=== PATIENT | male | born 1955 | race Caucasian/White ===

== ENCOUNTER 2016-10-02 08:17 | Day surgery (SDC) | payer OTHER, MEDICARE ==
[~2016-10-02] VITALS: Ht 177.8 cm; Wt 100.0 kg
[2016-10-02] VITALS (10 sets, daily range): BP systolic 105–131; BP diastolic 60–89; PULSE 57–74; TEMP 36.5–36.7; O2SAT 94–98; Ht 177.8 cm; Wt 100.0 kg
[~2016-10-02 08:17] MED LIST: FLUT0.15 INTNAS; PRT/20 PO; RXC5 PO
[2016-10-02] MEDS ORDERED: HYDR-3983 PO (08:45)
[2016-10-02] MEDS ORDERED: ACETAMINOPHEN 500 MG TAB PO PRN (10:00)
--- NOTE | 2016-10-02 10:00 | Discharge Instructions ---
Discharge Instructions Procedure Procedure Date: Oct 02, 2016. Reason for visit: Spinal Stenosis. Discharge Discharge Date: Oct 02, 2016. Discharge Diagnosis: Post myelogram Instructions Activity Recommendations: No limitations, 1 Day-May resume regular activity, 48 Hours of decreased exertion, 1 Day with no exercise/sex/sports, 1 Day with no driving/machine use Return to School/Work: no limitations Recommended Home Diet: Resume Previous Diet Provider Instructions: Lumbar Puncture performed with Fluoroscopic guidance [L45 ] level with [20 ] needle. No complications. Allergies Coded Allergies: No Known Allergies (Unverified , 10/02/16) Chely Duff Recommendations: Call your doctor if: * Temperature above 101 degrees * Pain not relieved by pain medicine ordered * There is increased drainage or redness from any incision * You have any unanswered questions or concerns. Your Doctors Instructions noted above were prepared by provider Luke Redding. Patient Signature Section: Patient Instructions Signature Page Chad Tirado Patient (or Guardian) Signature/Date: I have read and understand the instructions given to me by my caregivers. Caregiver/RN/Doctor Signature/Date: The above-named patient and/or guardian has received patient instructions on this date. + Original Patient Signature Page (only) stays with chart. Please make copy for patient.
[2016-10-02] MEDS ORDERED: ACETAMINOPHEN 500 MG TAB PO ONE (10:29)
--- NOTE | 2016-10-02 10:36 | DIAGNOSTIC IMAGING REPORT ---
CT cervical myelogram MYELOGRAM, SUPER/INTER CERVICAL CLINICAL HISTORY: MD order: CT myelogram cervical spine pain. Neuropathy. TECHNIQUE: Following description of procedure and informed consent, a 20-gauge was inserted to the L3-L4 level of the lumbar spine. Approximately 12 cc of nonionic contrast was injected. Contrast was allowed to travel to the cervical region with a follow-up CT performed. There were no complications of the time of the procedure. COMPARISON STUDY: None FINDINGS: Successful CT myelogram IMPRESSION: Successful CT myelogram. Report of the CT myelogram is to follow. No complications. Electronically signed by: Luke Redding M.D. 10/02/2016 10:35 AM Dictated Date/Time: 10/02/2016 10:33 AM
--- NOTE | 2016-10-02 11:53 | DIAGNOSTIC IMAGING REPORT ---
CERVICAL SPINE WITH CLINICAL HISTORY: 60 years-old Male presenting with MYELOGRAM. TECHNIQUE: Multidetector CT of the cervical spine was performed after administration of intrathecal contrast. IV contrast: None. COMPARISON: MR from 02/17/2016. CT DOSE: The estimated cumulative dose is 383.53 mGy.cm. 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 Intrathecal contrast is noted throughout the visualized levels including the intracranial CSF. Anterior plate and screw fixation of C3-C5 with interbody spacer at C3-4. Overall straightening of normal cervical lordosis. Vertebral body heights maintained. Osseous fusion across C4-5. No significant degenerative changes above or below the fused levels. No acute fracture or hardware competition. 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 Osseous fusion across the right uncovertebral joint at C4-5 results in mild osseous neural foraminal narrowing primarily of the lateral recess (series 3 image 310). This may impact the exiting C5 nerve. No significant osseous neural foraminal narrowing at the remaining levels Limited visualization of the posterior fossa is within normal limits. Paraspinal soft tissues are unremarkable. Lung apices demonstrate mosaic attenuation, possibly due to the patient's respiration or related to small airways disease. IMPRESSION: 1. Mild osseous neuroforaminal narrowing at C4-5 secondary to osseous fusion of the uncovertebral joint primarily affecting the lateral recess and potential impacting the exiting C5 nerve. Electronically signed by: Fred Bhandari 10/02/2016 11:52 AM Dictated Date/Time: 10/02/2016 11:40 AM
== END 2016-10-02 14:15 | disposition home or self-care (01) ==
LOC: C.ACU 08:17
PROVIDERS: ATTEND Orthopaedic Surgery Orthopaedic Surgery of the Spine
DX: M47.812 Spondylosis without myelopathy or radiculopathy, cervical region (principal)

== ENCOUNTER 2016-11-05 05:00 | Observation (INO) | payer OTHER, MEDICARE ==
[2016-10-15 14:06] VITALS: Ht 177.8 cm; Wt 102.1 kg
[2016-10-15 14:27] LABS: BASO % 0.3 %; BASO ABS # 0.02 K/uL (0-0.2); COMPLETE YES; EOS % 1.6 %; HEMATOCRIT 39.1 % (42-52); IG% 0.3 %; LYMPH % 26.8 %; LYMPH ABS # 1.55 K/uL (1.2-3.4); MEAN CELL VOLUME 83.9 fL (80-100); MEAN CORPUSCULAR HEMOGLOBIN 29.6 pg (25-34); MEAN CORPUSCULAR HGB CONC 35.3 g/dl (32-36); MEAN PLATELET VOLUME 9.5 fL (7.4-10.4); MONO % 5.7 %; NEUT % 65.3 %; PLATELET COUNT 192 K/uL (130-400); RED BLOOD COUNT 4.66 M/uL (4.7-6.1); WHITE BLOOD COUNT 5.79 K/uL (4.8-10.8)
--- NOTE | 2016-10-15 14:35 | PAT Medication Instructions ---
Service Date Oct 15, 2016. Current Home Medication List Hydrocodone/Acetaminophen 7.5MG/325MG ([place] 7.5MG/325MG), 1 TAB PO Q4H PRN for Pain Pantoprazole (Protonix), 40 MG PO QAM Medication Instructions For Your Scheduled Surgery - Take the following medications the morning of surgery with a sip of water: Hydrocodone/Acetaminophen 7.5MG/325MG ([place] 7.5MG/325MG), 1 TAB PO Q4H PRN for Pain (okay to take up to 4 hours prior to surgery if needed) Pantoprazole (Protonix), 40 MG PO QAM - Take the following medications as scheduled the night before surgery: Hydrocodone/Acetaminophen 7.5MG/325MG ([place] 7.5MG/325MG), 1 TAB PO Q4H PRN for Pain (if needed) Pantoprazole (Protonix), 40 MG PO QAM If you have any questions please call us at [phone] or [phone] or [phone]
[2016-10-15 14:39] LABS: PROTHROMBIN TIME (PATIENT) 10.5 SECONDS (9.0-12.0)
[2016-10-15 14:49] LABS: URINE APPEARANCE CLEAR (CLEAR); URINE BILIRUBIN NEG (NEG); URINE COLOR YELLOW; URINE NITRITE NEG (NEG); URINE SPECIFIC GRAVITY 1.021 (1.000-1.030); UROBILINOGEN NEG (NEG)
[2016-10-15 14:59] LABS: BUN/CREATININE RATIO 12.3 (10-20); CALCIUM 8.6 mg/dl (8.5-10.1); CREATININE 0.95 mg/dl (0.60-1.40); POTASSIUM 4.1 mmol/L (3.5-5.1)
--- NOTE | 2016-10-15 15:01 | DIAGNOSTIC IMAGING REPORT ---
CHEST 2 VIEWS ROUTINE CLINICAL HISTORY: pat preoperative evaluation COMPARISON STUDY: 08/02/2014 FINDINGS: The bones soft tissues and hemidiaphragms are normal. The cardiomediastinal silhouette is normal. The lungs are clear. The pulmonary vasculature is normal. IMPRESSION: Negative chest. The above report was generated using voice recognition software. It may contain grammatical, syntax or spelling errors. Electronically signed by: Luke Redding M.D. 10/15/2016 2:59 PM Dictated Date/Time: 10/15/2016 2:59 PM
[2016-10-15 15:05] LABS: MANUAL MICROSCOPIC REQUIRED? NO; REVIEW REQ? NO
[~2016-11-05] VITALS: Ht 177.8 cm; Wt 102.1 kg
[2016-11-05] VITALS (16 sets, daily range): BP systolic 116–170; BP diastolic 71–113; PULSE 61–118; TEMP 36.5–37.2; O2SAT 91–97
[~2016-11-05 05:00] MED LIST changes: -FLUT0.15 INTNAS; +HYDR-3983 PO; -RXC5 PO
[2016-11-05] MEDS ORDERED: LACTATED RINGER'S 1000ML 1,000 ML IV SCH (06:00)
[2016-11-05] MEDS ORDERED: CEFAZOLIN 2000 MG/60 ML D5W 60 ML IV SCH (06:00)
[2016-11-05] MEDS ORDERED: SODIUM CHLORIDE 0.9% 1000ML 1,000 ML IV SCH (06:00)
[2016-11-05] MEDS ORDERED: LACTATED RINGER'S 1000ML IV SCH (06:00)
[2016-11-05] MEDS ORDERED: FENTANYL CITRATE INJ 50 MCG/1 ML 2 ML VIAL ONE (06:41)
[2016-11-05] MEDS ORDERED: MIDAZOLAM HCL 1 MG/ML 2ML VIAL ONE (06:41)
--- NOTE | 2016-11-05 06:50 | History and Physical ---
History & Physical Date Nov 05, 2016. Chief Complaint Neck and arm pain numbness and tingling History of Present Illness The patient is a 60 year old male with complaints of neck and upper extremity difficulties with any type of movement flexion-extension rotation anesthesias without weakness or signs of cord compression. Past Medical/Surgical History No history of angina or chest pain last the wheezing for numbness and tingling diabetes no anemia no carcinoma positive for rheumatoid arthritis acid reflux obesity. Surgical history spine surgery knee surgery: cholecystectomy and appendectomy Additional History Hepatic Disease: No Endocrine Disorder: No Kidney Disease: No Hypertension: No Heart Disease: No Bleeding Tendencies: No Infectious Diseases: No Allergies Coded Allergies: No Known Allergies (Unverified , 11/05/16) Home Medications Scheduled Pantoprazole (Protonix), 40 MG PO QAM Scheduled PRN Hydrocodone/Acetaminophen 7.5MG/325MG ([place] 7.5MG/325MG), 1 TAB PO Q4H PRN for Pain Physical Examination Skin: warm/dry Eyes: normal inspection ENT: normal ENT inspection Head: normocephalic Respiratory/Chest: lungs clear Cardiovascular: regular rate, rhythm Abdomen / GI: normal bowel sounds Back: normal inspection Extremities: normal inspection Neurologic/Psych: no motor/sensory deficits Diagnosis 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 Removal old implants C3 4 C4 5 plate fixation C3-C4 and C4-C5
[2016-11-05] MEDS ORDERED: THROMBIN FOR SOLN 20000 UNIT KIT ONE (07:02)
[2016-11-05] MEDS ORDERED: GELATIN SPONGE SZ 100 ONE (07:02)
[2016-11-05] MEDS ORDERED: BUPIVACAINE/EPINEPHRINE 0.5% MPF 1:200,000 10 ML VIAL ONE (07:03)
[2016-11-05] MEDS ORDERED: BACITRACIN 50000 UNIT VIAL ONE (07:03)
[2016-11-05] MEDS ORDERED: ONDANSETRON INJ 2 MG/ML 2 ML VIAL ONE (07:54)
[2016-11-05] MEDS ORDERED: LIDOCAINE HCL 2% 2 ML VIAL (20MG/ML) ONE (07:54)
[2016-11-05] MEDS ORDERED: PROPOFOL IV EMULSION 10 MG/ML 20 ML VIAL IV ONE (07:54)
[2016-11-05] MEDS ORDERED: DEXAMETHASONE SOD INJ 4 MG/ML VIAL ONE (07:54)
[2016-11-05] MEDS ORDERED: ROCURONIUM BROMIDE 10 MG/ML 5 ML VIAL ONE ×2 (07:54→08:42)
[2016-11-05] MEDS ORDERED: GLYCOPYRROLATE INJ 0.2 MG/ML VIAL ONE (07:54)
[2016-11-05] MEDS ORDERED: LARYING-O-JET KIT (LTA) ONE ×2 (07:54)
[2016-11-05] MEDS ORDERED: NEOSTIGMINE METHYLSULFATE 5 MG/5 ML SYR ONE (07:54)
[2016-11-05] MEDS ORDERED: SUCCINYLCHOLINE CHLORIDE 20 MG/ML 10 ML VIAL IV ONE (07:54)
[2016-11-05] MEDS ORDERED: HYDROmorphone INJ 2 MG/ML SYR/VIAL ONE (08:07)
[2016-11-05] MEDS ORDERED: ONDANSETRON INJ 2 MG/ML 2 ML VIAL IV PRN ×2 (08:45→10:00)
[2016-11-05] MEDS ORDERED: LABETALOL HCL IV 5 MG/ML 20ML IV PRN (08:45)
[2016-11-05] MEDS ORDERED: EpHEDrine SULFATE INJ 50 MG/ML AMP IV PRN (08:45)
[2016-11-05] MEDS ORDERED: HYDROmorphone INJ 1 MG/ML SYR IV PRN (08:45)
[2016-11-05] MEDS ORDERED: MEPERIDINE HCL 25 MG/ML CARP IV PRN (08:45)
[2016-11-05] MEDS ORDERED: ATROPINE SULFATE 0.1 MG/ML 5ML SYR IV PRN (08:45)
--- NOTE | 2016-11-05 09:48 | [facility] Post Operative Brief Note ---
Immediate Operative Summary Operative Date Nov 05, 2016. Pre-Operative Diagnosis Spinal cord compression C3-C4 cervical spine, Nonunion of prior fusion C3-C4 Post-Operative Diagnosis same as pre-operative Procedure(s) Performed C3-C4 Anterior Cervical Discectomy and Fusion with Iliac Crest Bone Graft; C3-C4, C4-C5 Removal Old Implants; C3-C4, C4-C5 Plate Fixation Surgeon Dr. Josesito Lucas [employer] Division Manager Surgeon(s) Dariusz Flores PA-C Estimated Blood Loss 25ml Findings non uniopn c3-4 Specimens A: Explanted hardware C3-C5 Complication(s) None Disposition Recovery Room / PACU
--- NOTE | 2016-11-05 09:54 | DIAGNOSTIC IMAGING REPORT ---
SPINE ONE VIEW, ANY LEVEL HISTORY: 60 years-old Male C3-C4 ACDF COMPARISON: CT cervical spine 10/02/2016 TECHNIQUE: Single lateral supine spot fluoroscopic image of the cervical spine was obtained utilizing 5.3 seconds of fluoroscopy time. FINDINGS: Anterior plate and screw fusion hardware is seen at the C3-C4 level. Previously noted anterior plate and screw fusion at C4-C5 is no longer identified on these images. Alignment appears satisfactory. IMPRESSION: Anterior plate and screw fusion hardware at C3-C4. Please see operative report for further details. The above report was generated using voice recognition software. It may contain grammatical, syntax or spelling errors. Electronically signed by: Allen Garner M.D. 11/05/2016 9:53 AM Dictated Date/Time: 11/05/2016 9:51 AM
[2016-11-05] MEDS ORDERED: RACEPINEPHRINE 2.25% NEBU SOLN 0.5 ML VIAL INH PRN (10:00)
[2016-11-05] MEDS ORDERED: ACETAMINOPHEN IV 1,000 MG in EMPTY BAG 0 ML IV PRN (10:00)
[2016-11-05] MEDS ORDERED: NALOXONE HCL 0.4 MG/1 ML VIAL/CARP IV PRN (10:00)
[2016-11-05] MEDS ORDERED: MAGNESIUM HYDROXIDE SUSP 30 ML UDC PO PRN (10:00)
[2016-11-05] MEDS ORDERED: HYDROmorphone INJ 0.5 MG/0.5 ML SYR IV PRN (10:00)
[2016-11-05] MEDS ORDERED: DEXAMETHASONE INJ 8 MG in SYRINGE 0 ML IV PRN (10:00)
[2016-11-05] MEDS ORDERED: LORAZEPAM INJ 0.5 MG in SYRINGE 0.75 ML IV PRN (10:00)
--- NOTE | 2016-11-05 10:18 | OPERATIVE REPORT ---
DATE OF OPERATION: 11/05/2016 PREOPERATIVE DIAGNOSES: Nonunion cervical spine C3-C4, spinal cord compression C3-C4. POSTOPERATIVE DIAGNOSES: Same. PROCEDURES: Include removal, explant of a plate C3, C4 and C5. Removal of an anterior implant between C3 and C4. The iliac crest bone graft, left hand side, anterior cervical discectomy C3-C4 and anterior plate C3-C4. SURGEON: Dr. Lucas. SHOPPER INSIGHTS MANAGER: Dariusz Flores PA-C. COMPLICATIONS: Zero. ANESTHETIC: General. BLOOD LOSS: 25 mL. Sponge and needle count correct at the close. DESCRIPTION OF PROCEDURE: The patient was taken to the operating room and general intubated anesthetic provided to the patient. He was scrubbed, prepped, draped sterile. We made a transverse skin incision over C3-C4 vertebral body, dissecting the soft tissue. We got down onto the anterior aspect of the vertebral bodies. We were able to remove the old plate. Set screws were removed. Each screw was removed as well. We then were able to go up higher up into the C3-C4 interspace where a nonunion I determined. We used various sized instruments including a high speed bur to remove the implant. We got back to the spinal cord. We decompressed the neural elements. We then went to the left iliac crest, made a skin incision, fascial incision, harvested a piece of bone graft site. The iliac crest bone was placed into the vacated interval at C3-C4 cervical spine anterior plate is well placed. I was pleased with the positioning and the structural stability. We irrigated, closed all layers, the crest closed with 1 Vicryl suture, 2-0 and 3-0 nylon. The spine was closed with 4-0 Monocryl over a Alan drain. Sterile dressings applied. A collar applied. The patient extubated to PACU stable. No apparent complications. I attest to the content of the Intraoperative Record and any orders documented therein. Any exception s are noted below.
[2016-11-05] MEDS: FENTANYL CITRATE INJ 50 MCG/1 ML 2 ML VIAL IV PRN ×4 (10:23→10:47)
--- NOTE | 2016-11-05 11:16 | Anesthesiology Progress Note ---
Anesthesia Post Op Note Date & Time Nov 05, 2016 at 11:16 Vital Signs Pain Intensity: 10 Vital Signs Past 12 Hours Date Time Temp Pulse Resp B/P (MAP) Pulse Ox O2 Delivery O2 Flow Rate FiO2 11/05/16 10:55 80 16 153/87 95 Nasal Cannula 4 11/05/16 10:45 36.3 94 16 156/107 95 Nasal Cannula 4 11/05/16 10:35 85 16 160/96 97 Nasal Cannula 4 11/05/16 10:25 85 16 149/83 97 Nasal Cannula 4 11/05/16 10:15 85 16 151/102 97 Nasal Cannula 4 11/05/16 10:05 85 16 145/93 97 Oxymask 10 11/05/16 09:55 85 16 160/102 96 Oxymask 10 11/05/16 09:45 36.3 85 16 137/87 96 Oxymask 10 11/05/16 05:51 36.5 61 18 118/84 (95) 94 Room Air Notes Mental Status: alert / awake / arousable, participated in evaluation Pt Amnestic to Procedure: Yes Nausea / Vomiting: adequately controlled Pain: adequately controlled Airway Patency, RR, SpO2: stable & adequate BP & HR: stable & adequate Hydration State: stable & adequate Anesthetic Complications: no major complications apparent
[2016-11-05] MEDS ORDERED: IV FLUIDS COMPLETED PRN (12:30)
[2016-11-05] MEDS: HYDROmorphone INJ 1 MG/ML SYR IV PRN ×3 (14:06→20:49)
[2016-11-05] MEDS: SODIUM CHLORIDE 0.9% 1000ML 1,000 ML IV SCH ×2 (14:07→22:06)
[2016-11-05] MEDS: CEFAZOLIN IV 1,000 MG in DEXTROSE 5% 50ML 50 ML IV SCH ×2 (16:11→23:16)
[2016-11-05] MEDS: DEXAMETHASONE INJ 6 MG in SYRINGE 0 ML IV SCH ×2 (16:12→23:17)
[2016-11-05] MEDS: DOCUSATE SODIUM 100 MG CAP PO SCH (20:51)
[2016-11-05] MEDS: OXYCODONE HCL IR 5 MG TAB (IMMEDIATE RELEASE) PO PRN (23:17)
[2016-11-06] VITALS (12 sets, daily range): BP systolic 122–140; BP diastolic 78–90; PULSE 80–100; TEMP 36.5–36.9; O2SAT 92–97
[2016-11-06] MEDS: HYDROmorphone INJ 1 MG/ML SYR IV PRN (02:46)
[2016-11-06] MEDS: OXYCODONE HCL IR 5 MG TAB (IMMEDIATE RELEASE) PO PRN ×3 (06:38→14:28)
[2016-11-06] MEDS: DEXAMETHASONE INJ 6 MG in SYRINGE 0 ML IV SCH (08:04)
[2016-11-06] MEDS: DOCUSATE SODIUM 100 MG CAP PO SCH (08:04)
[2016-11-06] MEDS: CEFAZOLIN IV 1,000 MG in DEXTROSE 5% 50ML 50 ML IV SCH (08:04)
--- NOTE | 2016-11-06 08:07 | Anesthesiology Progress Note ---
Anesthesia Post Op Note Date & Time Nov 06, 2016 at 08:06 Vital Signs Vital Signs Past 12 Hours Date Time Temp Pulse Resp B/P (MAP) Pulse Ox O2 Delivery O2 Flow Rate FiO2 11/06/16 06:31 36.6 89 16 125/83 92 Nasal Cannula 4.0 Humidified Oxygen 11/06/16 04:45 36.8 93 16 128/82 93 Nasal Cannula 4.0 Humidified Oxygen 11/06/16 03:23 96 14 94 Nasal Cannula 4.0 11/06/16 02:39 36.5 91 20 122/83 94 Nasal Cannula 4.0 Humidified Oxygen 11/06/16 00:43 36.9 100 16 133/87 93 Nasal Cannula 4.0 Humidified Oxygen 11/05/16 23:05 Nasal Cannula 4.0 Humidified Oxygen 11/05/16 23:01 118 16 93 Nasal Cannula 4.0 11/05/16 22:35 36.6 108 16 140/82 94 Nasal Cannula 4.0 Humidified Oxygen 11/05/16 20:45 37.2 105 16 134/87 93 Humidified Oxygen 4.0 Notes Mental Status: alert / awake / arousable, participated in evaluation Pt Amnestic to Procedure: Yes Nausea / Vomiting: adequately controlled Pain: adequately controlled Airway Patency, RR, SpO2: stable & adequate BP & HR: stable & adequate Hydration State: stable & adequate Anesthetic Complications: no major complications apparent
[2016-11-06] MEDS ORDERED: PANTOprazole SOD 40 MG TAB PO SCH (09:00)
--- NOTE | 2016-11-06 11:46 | Discharge Instructions ---
Discharge Instructions Date of Service Nov 06, 2016. Admission Reason for Admission: Cervical Stenosis, Cord Compression Discharge Discharge Diagnosis / Problem: same Discharge Goals Goal(s): Improve function Activity Recommendations Activity Limitations: as noted below Lifting Limitations: gradually increase as tolerated Exercise/Sports Limitations: until after follow-up appointment May Resume Sexual Activity: after follow-up appointment Shower/Bathe: keep incision dry just be careful and use common sense . Instructions / Follow-Up Instructions / Follow-Up MEDICATIONS: Please take your prescriptions as instructed at your pre-op appointment. SPECIAL CARE: The following information is intended to answer some of the common questions and concerns regarding your surgery. Each patient is an individual and receives individual counselling throughout the course of treatment, from diagnosis to surgery all the way through recovery. What follows is not an exhaustive list, but should be a useful guide to some of the common questions and concerns patients have regarding their surgeries. These are not provided to keep you from calling us; rather, they give you something accurate and concrete to reference as you recover from your procedure. If you need us, we are available to you. As always, if you are not sure about something, call us at [phone]. MEDICAL EMERGENCIES: For these conditions, call 911 or go to your local hospital-based Emergency Department - not [facility] or equivalent. * Paralysis * Severe chest pain or difficulty breathing * Swelling or redness of either leg Spine procedures can be rather complex and though complications are rare, they do occur. In such cases, effective advice regarding emergency situations cannot always be addressed over the telephone. You may be referred to the emergency department for more effective management of your problem. Activity Limitations: It is important to give your body time to heal, so please limit your activities : * In general, don't do anything that moves your spine too much. You should avoid contact sports, twisting or heavy lifting while you recover. * 5-10 pounds is all you should attempt to lift. * You should not plan on driving for approximately 3 weeks and you should avoid traveling more than 30-45 minutes at a time. Longer trips should be broken down with walking breaks spaced appropriately. * Physical therapy is not usually required. * Walking and good posture practices will help you recover and regain your function. * Avoid straining or sudden changes in position. * In general, the goal is to take it easy and recover. Don't cause any new problems. Just relax. Showers: * Do not take a bath, use a Jacuzzi or hot tub or otherwise submerge your incision. * It is usually safe to take a shower 4-5 days after your surgery. * Your incision does not require any special creams or ointments. * Simply clean it with soap and water, dry and re-dress with a clean bandage afterwards. Incision: * Keep incision clean, dry and protected until your first follow-up appointment. * Some amount of drainage and redness is normal. Any drainage should be fairly clear and not have a foul odor. * If you feel anything is wrong or you have excessive drainage, please call us. * Your stitches and yazan will be removed 10-14 days after your surgery. At the time of your first post-op visit. * Neck surgeries are typically closed with a suture underneath the skin. The steri-strips over the incision should be maintained until we see you in the office. Bracing: * You may be provided with a back or neck brace to encourage good posture and prevent injury. It will remind you not to do too much as you heal and will alert others to the fact that you have had a surgery. * Back braces may be removed for showers and when you are resting at home. They must be worn when you are walking around for any period of time or for travel. * For neck surgery, you will likely be provided with two cervical collars. The soft collar ([place] or foam rubber) is worn most commonly throughout the day and while sleeping. The plastic collar (provided at the hospital) is for showering/bathing. * Except while eating, collars should remain in place. More specifically, bracing is provided for a purpose and should be worn. * Please obtain your brace or collars prior to your operation and bring them to the hospital with you on the day of surgery. * You should also bring your collars to your post-op appointment with Dr. Lucas. You should always take good care of your body and practice healthy habits, especially following surgery. You should: * Follow your doctor's treatment plan * Sit and stand properly with good posture (ears over shoulders, shoulders over hips) Don't slouch * Learn to lift correctly * Exercise regularly (low-impact aerobic exercise is especially good, but check with your doctor first) * Generally, be up and walking for 5-10 minutes at a time at least 3-4 times per day from the day you get home * Increasing walking to tolerance until you can walk for 20-30 minutes at a time * Attain and maintain a healthy body weight * Eat healthy foods ( a well-balanced, low-fat diet rich in fruits and vegetables) and get enough calcium * Avoid excessive use of alcohol When to call our office - If you notice any of the following: * Increased pain not relieve by pain medicine * Fevers greater then 100 degrees F, chills or flu symptoms * Increased redness around incision * Drainage from the incision that is not clear * Any foul smelling drainage * Swelling or fluid collection beneath the skin Miscellaneous: * In the hospital, you may be given a walker or cane for support while walking. These are temporary needs and are intended to prevent injuries due to falls. You may discontinue them when you feel strong and steady enough on your feet. * Sleep in a comfortable position. We find that many patients find a lounge chair or recliner with several pillows to be beneficial in the early post-operative period. * The support stockings should be used for 7-10 days and may be discontinued when you are back to walking more and conducting usual household activities. No problem is insignificant. We are here to help you and get you well. Contact us at [phone]. Definitions: Foraminotomy: If part of the disc or a bone spur (osteophyte) is pressing on a nerve as it leaves the vertebra (through an exit called the foramen), a foraminotomy may be done. Otomy means "to make an opening." A foraminotomy is making the opening of the foramen larger, so the nerve can exit without being compressed. Laminotomy: Similar to the foraminotomy, a laminotomy makes a larger opening, this time in your bony plate protecting your spinal canal and spinal cord (the lamina). The lamina may be pressing on your nerve, so the surgeon may make more room for the nerves using a laminotomy. Laminectomy: Sometimes, a laminotomy is not sufficient. The surgeon may need to remove all or part of the lamina. This procedure is called a laminectomy. This can often be done at many levels without any harmful effects. Current Hospital Diet Patient's current hospital diet: Regular Diet Discharge Diet Recommended Diet: Regular Diet, AHA Diet (Heart Healthy) Procedures Procedures Performed: C3-C4 Anterior Cervical Discectomy and Fusion with Iliac Crest Bone Graft; C3-C4, C4-C5 Removal Old Implants; C3-C4, C4-C5 Plate Fixation Pending Studies Studies pending at discharge: no Medical Emergencies . Who to Call and When: Medical Emergencies: If at any time you feel your situation is an emergency, please call 911 immediately. . Non-Emergent Contact Non-Emergency issues call your: Primary Care Provider . "Provider Documentation" section prepared by Josesito Lucas. . VTE Core Measure Inpt VTE Proph given/why not?: Treatment not indicated
--- NOTE | 2016-11-06 15:04 | OPERATIVE REPORT ---
DATE OF OPERATION: 11/05/2016 ADDENDUM PREOPERATIVE DIAGNOSIS: Nonunion cervical spine C3-C4, spinal cord compression C3. POSTOPERATIVE DIAGNOSIS: Same. PROCEDURE: 1. Removal of explanted plate that spanned C3, 4 and 5. 2. Removal of anterior implant interbody spacer between C3-4. 3. Left iliac crest bone graft structural autograft. 4. Anterior cervical discectomy and anterior fusion C3-4 cervical spine and anterior plating C3-4 cervical spine. I attest to the content of the Intraoperative Record and any orders documented therein. Any exception s are noted below.
[2016-11-07] MEDS ORDERED: BISACODYL 5 MG TABEC PO PRN (06:00)
[2016-11-07] MEDS ORDERED: BISACODYL 10 MG SUPP PR PRN (06:00)
--- NOTE | 2016-11-13 16:16 | DISCHARGE SUMMARY ---
SUBJECTIVE: The patient was admitted after surgery on the 05 of November, did well, out of bed that evening, next day eating, taking p.o. No change in mental status, alert, oriented. DISPOSITION: He was discharged home in improved stable condition. We will see him back in the office in 10 days. Instructions and precautions were given to him in the office and in the OR and in the hospital floor.
== END 2016-11-06 15:00 | disposition home health service (06) ==
LOC: C.ACU 05:00 → C.3E 09:51 → ENRESERV 10:54
PROVIDERS: ADMIT Orthopaedic Surgery Orthopaedic Surgery of the Spine; ATTEND Orthopaedic Surgery Orthopaedic Surgery of the Spine
DX: M96.0 Pseudarthrosis after fusion or arthrodesis (principal); M50.01 Cervical disc disorder with myelopathy, high cervical region; K21.9 Gastro-esophageal reflux disease without esophagitis; M06.9 Rheumatoid arthritis, unspecified; E66.9 Obesity, unspecified; Z79.899 Other long term (current) drug therapy